=== PATIENT | female | born 1965 | race Caucasian/White ===

== ENCOUNTER 2017-08-30 21:03 | Emergency (ER) | payer OTHER ==
[2017-08-30 21:07] VITALS: BMI 18.2
--- NOTE | 2017-08-30 21:17 | PDOC ---
History of Present Illness - General History Source: Patient Exam Limitations: No Limitations - History of Present Illness Initial Comments: 08/30/17 21:44 The patient is a 52 year old female, with no significant past medical history, who presents to the emergency department with, progressively worsening lower abdominal pain beginning approx. 10 hours ago. The patient reports this morning she began to experience a sudden onset of sharp lower abdominal pain rated 3/ 10. The patient reports she took Gas X for the lower abdominal pain with little relief. The patient reports she rested during the day. However, the lower abdominal pain has been progressively getting worse so she decided to come to the ED for evaluation. The patient reports she has a fibrous diet with a lot of almonds. She denies recent fevers, chills, headache or dizziness. She denies recent nausea, vomit, diarrhea or constipation. She denies recent dysuria, frequency, urgency or hematuria. She denies recent chest pain or shortness of breath. PAST MEDICAL HISTORY: no significant history PAST SURGICAL HISTORY: no significant history FAMILY HISTORY: no pertinent history SOCIAL HISTORY: Pt lives with family and is employed. MEDICATIONS: reviewed ALLERGIES: As per nursing notes Review of Systems General: No fevers or chills, no weakness, no weight loss HEENT: No change in vision. No sore throat,. No ear pain CardioVascular: No chest pain or shortness of breath Respiratory:No cough, or wheezing. Gastrointestinal: +Lower abdominal pain. No nausea, vomiting, diarrhea or constipation, No rectal bleeding Genitourinary: No dysuria, hematuria, or frequency Musculoskeletal: No joint or muscle pain or swelling Neurologic: No headache, vertigo, dizziness or loss of consciousness Psychiatric: nor depression Skin: No rashes or easy bruising Endocrine: no increased thirst or abnormal weight change Allergic: no skin or latex allergy All other systems reviewed and normal Physical exam General: Well-nourished well-developed individual, no acute distress HEENT: Throat: Normal, tonsils normal, no erythema or exudate Neck: Supple, no meningeal signs, no lymphadenopathy Eyes::Pupils equal reactive and round, extraocular motion intact Chest: Nontender to palpation Cardiac: S1-S2 normal, regular rate and rhythm, no murmurs rubs or gallops Respiratory: Lungs clear to auscultation bilateral Abdomen: +Moderately tender left lower quadrant. Soft, nondistended, normal bowel sounds. Extremities: Warm, dry, no cyanosis, clubbing, or edema Skin: No rashes Neuro: Alert and oriented x3, nonfocal exam, grossly intact, normal gait Psych: Normal mood and affect <Masood Mcrae - Last Filed: 08/30/17 21:46> - General History Source: Patient Exam Limitations: No Limitations - History of Present Illness Initial Comments: A portion of this note was documented by scribe services under my direction. I have reviewed the details of the note, within reason, and agree with the documentation. The case summary and management plan written by me. Medical decision making This is a 52-year-old female who comes in complaining of the moderately severe lower abdominal pain.\ On my exam patient was tender primarily of over the left lower quadrant exam was concerning for diverticulitis. We'll obtain blood work including CBC, comp, urinalysis Will order, CAT scan abdomen and pelvis with IV and by mouth contrast We will give IV fluids and some antiemetics and pain medication Will reassess and follow up on the evaluation I ordered 23:00 Patient much more comfortable with pain medication and fluids Patient scheduled for CT proximal 11:30 PM 08/31/17 00:29 CAT scan shows moderate to large amount of stool otherwise normal and no acute pathology Assessment and plan: This is a 52-year-old female with primarily lower abdominal pain on my exam was most tender over the left lower quadrant. Exam was concerning for diverticulitis however patient's workup was negative for any acute disease process including normal CBC normal chemistries and a normal CAT scan with the exception of a moderate amount of constipation. Patient will be given a bottle of mag citrate and told to sweet pickle maker some over-the- counter laxatives and follow up with her primary care doctor <Iain Zhong I - Last Filed: 08/31/17 00:35> - General Chief Complaint: Pain, Acute Stated Complaint: LOWER ABD PAIN Time Seen by Provider: 08/30/17 21:08 Past History <Masood Mcrae - Last Filed: 08/30/17 21:46> - Past Medical History COPD: No - Suicide/Smoking/Psychosocial Hx Smoking History: Never smoked Hx Alcohol Use: No Drug/Substance Use Hx: No Substance Use Type: Alcohol <Iain Zhong I - Last Filed: 08/31/17 00:35> - Past Medical History Allergies/Adverse Reactions: Allergies Allergy/AdvReac Type Severity Reaction Status Date / Time No Known Allergies Allergy Verified 08/30/17 21:03 Home Medications: Ambulatory Orders Bupropion HCl [Wellbutrin -] 100 mg PO DAILY 08/30/17 Levothyroxine [Synthroid -] 112 mcg PO DAILY 08/30/17 *Physical Exam - Vital Signs Last Vital Signs Temp Pulse Resp BP Pulse Ox 98.1 F 65 16 127/90 100 08/30/17 21:03 08/30/17 21:03 08/30/17 21:03 08/30/17 21:03 08/30/17 21:03 <Masood Mcrae - Last Filed: 08/30/17 21:46> - Vital Signs Last Vital Signs Temp Pulse Resp BP Pulse Ox 98.1 F 65 16 127/90 100 08/30/17 21:03 08/30/17 21:03 08/30/17 21:03 08/30/17 21:03 08/30/17 21:03 <Iain Zhong I - Last Filed: 08/31/17 00:35> ED Treatment Course - LABORATORY CBC & Chemistry Diagram: 08/30/17 21:29 08/30/17 21:29 - ADDITIONAL ORDERS Additional order review: Laboratory Results 08/30/17 21:09 Urine Color Yellow Urine Appearance Clear Urine pH 7.0 Ur Specific Kyle 1.010 Urine Protein Negative Urine Glucose (UA) Negative Urine Ketones Negative Urine Blood 2+ H Urine Nitrite Negative Urine Bilirubin Negative Urine Urobilinogen 0.2 Ur Leukocyte Esterase 1+ H Urine RBC 5-10 Urine WBC 2-5 Ur Epithelial Cells Few Urine Bacteria Few - Medications Given in the ED: ED Medications Discontinued Medications Generic Name Dose Route Start Last Admin Trade Name Freq PRN Reason Stop Dose Admin Morphine Sulfate 4 mg 08/30/17 21:27 08/30/17 21:38 Morphine Injection - IVPUSH 08/30/17 21:28 4 mg ONCE ONE Administration Ondansetron HCl 4 mg 08/30/17 21:27 08/30/17 21:38 Zofran Injection IVPUSH 08/30/17 21:28 4 mg ONCE ONE Administration <Masood Mcrae - Last Filed: 08/30/17 21:46> - LABORATORY CBC & Chemistry Diagram: 08/30/17 21:29 08/30/17 21:29 <Iain Zhong I - Last Filed: 08/31/17 00:35> *DC/Admit/Observation/Transfer - Attestations Scribe Attestion: 08/30/17 21:45 Documentation prepared by Masood Mcrae, acting as medical staff physician for Iain Zhong MD. <aMsood Mcrae - Last Filed: 08/30/17 21:46> - Discharge Dispostion Admit: No <Iain Zhong I - Last Filed: 08/31/17 00:35> Diagnosis at time of Disposition: Constipation Qualifiers: Constipation type: unspecified constipation type Qualified Code(s): K59.00 - Constipation, unspecified - Discharge Dispostion Disposition: HOME Condition at time of disposition: Stable - Patient Instructions Additional Instructions: You are being given a bottle of mag citrate this is a laxative. You most likely should wait till morning to drink it as otherwise it will keep you up all night. In addition to that get some MiraLAX which is an [id number] laxative and take as directed for the next several days. Return to the emergency department immediately with ANY new, persistent or worsening symptoms. Continue any medications as previously prescribed by your physician. You should follow up with your primary doctor as soon as possible regarding today's emergency department visit. . Please make sure your doctor reviews the results of your emergency evaluation. Thank you for coming to the Emergency Department today for your care. It was a pleasure to see you today. Please note that your evaluation is INCOMPLETE until you follow-up with your doctor.
[2017-08-30 21:20] LABS: URINE APPEARANCE Clear; URINE BILIRUBIN Negative (NEGATIVE); URINE GLUCOSE (UA) Negative (NEGATIVE); URINE KETONE Negative (NEGATIVE); URINE NITRITE Negative (NEGATIVE); URINE PROTEIN Negative (NEGATIVE); URINE UROBILINOGEN 0.2 (0.2-1.0)
[2017-08-30 21:22] LABS: URINE BLOOD 2+ (NEGATIVE); URINE COLOR YELLOW; URINE LEUK ESTERASE 1+ (NEGATIVE)
[2017-08-30] MEDS ORDERED: ONDANSETRON 4 MG/2 ML VIAL IVPUSH ONE (21:27)
[2017-08-30] MEDS ORDERED: SODIUM CHLORIDE 1,000 ML IV ONE (21:27)
[2017-08-30] MEDS ORDERED: morphine SULFATE 4 MG/ML VIAL ONE (21:31)
[2017-08-30] MEDS ORDERED: ONDANSETRON 4 MG/2 ML VIAL ONE (21:31)
[2017-08-30 21:35] LABS: EPI CELLS FEW /HPF; URINE BACTERIA FEW /hpf (NEGATIVE)
[2017-08-30] MEDS: morphine CARPU-JECT 4 MG/1 ML DISP.SYRIN IVPUSH ONE ×2 (21:38→22:56)
[2017-08-30 21:47] LABS: BASO % 0.4 % (0-2.0); EOS % 3.3 % (0-4.5); HEMATOCRIT 34.3 % (32.4-45.2); HEMOGLOBIN 11.6 GM/dl (10.7-15.3); LYMPH % 25.4 % (8-40); MCH 29.1 pg (25.7-33.7); MCHC 33.8 g/dl (32.0-36.0); MEAN CELL VOLUME 86.3 fl (80-96); MEAN PLT VOLUME 7.4 fl (7.5-11.1); MONO % 8.4 % (3.8-10.2); NEUT % 62.5 % (42.8-82.8); PLATELET COUNT 159 K/MM3 (134-434); RBC 3.97 M/mm3 (3.60-5.2); RDW 12.2 % (11.6-15.6); WHITE BLOOD COUNT 4.8 K/mm3 (4.0-10.8)
[2017-08-30 22:00] LABS: ALBUMIN 4.1 g/dl (3.5-5.0); ALK PHOS 23 U/L (32-92); ANION GAP 7 (8-16); BILIRUBIN,TOTAL 0.3 mg/dl (0.2-1.0); BLOOD UREA NITROGEN 10 mg/dl (7-18); CALCIUM 8.7 mg/dl (8.4-10.2); CHLORIDE 102 mmol/L (98-107); CO2 27 mmol/L (22-28); CREATININE 0.9 mg/dl (0.6-1.3); GLUCOSE,RANDOM 91 mg/dl (74-106); POTASSIUM 3.7 mmol/L (3.5-5.1); SGOT/AST 19 U/L (10-42); SGPT/ALT 18 U/L (10-40); SODIUM 136 mmol/L (136-145); TOT PROT 6.3 g/dl (6.4-8.3)
[2017-08-30 22:51] LABS: LIPASE 223 U/L (73-393)
[2017-08-30] MEDS ORDERED: morphine CARPU-JECT 2 MG/1 ML DISP.SYRIN IVPUSH ONE (22:57)
[2017-08-31] MEDS ORDERED: MAGNESIUM CITRATE 300 ML BOTTLE PO ONE (00:32)
[2017-08-31] MEDS ORDERED: SIMETHICONE 80 MG TAB.CHEW (FP) PO STA (00:33)
[2017-08-31] MEDS ORDERED: MAGNESIUM CITRATE 300 ML BOTTLE ONE (00:35)
[2017-08-31] MEDS ORDERED: SIMETHICONE 80 MG TAB.CHEW (FP) ONE (00:35)
[2017-08-31 00:40] VITALS: BP 94/52; PULSE 60; TEMP 98.2
== END 2017-08-31 00:50 | disposition home or self-care (01) ==
LOC: FER 21:03
PROC: 3E033NZ Introduction of Analgesics, Hypnotics, Sedatives into Peripheral Vein, Percutaneous Approach (ICD-10-PCS; principal; 2017-08-30)
PROC: 3E0337Z Introduction of Electrolytic and Water Balance Substance into Peripheral Vein, Percutaneous Approach (ICD-10-PCS; 2017-08-30)
PROC: 3E033GC Introduction of Other Therapeutic Substance into Peripheral Vein, Percutaneous Approach (ICD-10-PCS; 2017-08-30)
DX: K59.00 Constipation, unspecified (principal)
CPT/HCPCS: 36415; 74177-TC; 80053; 81003; 81015; 83690; 85025; 99282-25

== ENCOUNTER 2019-02-28 02:03 | Emergency (ER) | payer OTHER ==
[2019-02-28 02:10] VITALS: BP 116/80; PULSE 87; TEMP 98; BMI 19.8
[2019-02-28] MEDS ORDERED: CYCLOBENZAPRINE HCL 10 MG TABLET (FP) ONE (02:15)
[2019-02-28] MEDS ORDERED: KETOROLAC TROMETHAMINE 60 MG/2 ML VIAL ONE (02:15)
[2019-02-28] MEDS ORDERED: CYCLOBENZAPRINE HCL 10 MG TABLET (FP) PO ONE (02:15)
[2019-02-28] MEDS ORDERED: KETOROLAC TROMETHAMINE 60 MG/2 ML VIAL IM ONE (02:15)
--- NOTE | 2019-02-28 02:17 | PDOC ---
History of Present Illness - General Chief Complaint: Pain, Acute Stated Complaint: BACK PAIN X 2 WEEKS Time Seen by Provider: 02/28/19 02:11 History Source: Patient Exam Limitations: No Limitations - History of Present Illness Initial Comments: 02/28/19 02:20 This is a 53-year-old female who comes in complaining of low back pain radiating down her leg. Patient denies any recent trauma. Patient went to her primary care doctor approximately one week ago and was put on a Medrol Dosepak. Patient says she has been taking the pack as prescribed and has only one more day left. Patient said her back pain is not improving. Patient otherwise denies any numbness or weakness, any loss of continence or any other neurological complaints. Allergies: as per nursing notes Past Medical History: none Social history: Lives with family. No smoking. No alcohol. No illicit drugs. Surgical history: None General: No fevers or chills, no weakness, no weight loss HEENT: No change in vision. No sore throat,. No ear pain CardioVascular: no chest discomfort. No shortness of breath Respiratory:No cough, or wheezing. Gastrointestinal: no nausea, vomiting, diarrhea or constipation, No rectal bleeding Genitourinary: No dysuria, hematuria, or frequency Musculoskeletal: Low back pain as per history of present illness Neurologic: No headache, vertigo, dizziness or loss of consciousness Psychiatric: nor depression Skin: No rashes or easy bruising Endocrine: no increased thirst or abnormal weight change Allergic: no skin or latex allergy All other systems reviewed and normal GENERAL: The patient is awake, alert, and fully oriented, in no acute distress. HEAD: Normal with no signs of trauma. EYES: Pupils equal, round and reactive to light, extraocular movements intact, sclera anicteric, conjunctiva clear. EXTREMITIES:atraumatic, Normal range of motion, no edema. BACK: There is tenderness on palpation over the L5-S1 area as well as some bilateral spasm. There is tenderness over the sciatic notch bilaterally. Neurovascular distal is intact. NEUROLOGICAL: Normal speech, normal gait. PSYCH: Normal mood, normal affect. SKIN: Warm, Dry, normal turgor, no rashes or lesions noted. Assessment and plan: This is a 53-year-old female with sciatica who comes in for evaluation. Patient given a shot of Toradol some very Flexeril prescriptions for naproxen and Flexeril sent to her pharmacy and patient discharged and will follow-up with her primary care doctor Past History - Past Medical History Allergies/Adverse Reactions: Allergies Allergy/AdvReac Type Severity Reaction Status Date / Time No Known Allergies Allergy Verified 02/28/19 02:04 Home Medications: Ambulatory Orders Levothyroxine [Synthroid -] 125 mcg PO DAILY 08/30/17 Cyclobenzaprine HCl [Flexeril -] 10 mg PO HS #7 tablet 02/28/19 Methylprednisolone [Medrol Dose Ilya] 4 mg PO ASDIR 02/28/19 Naproxen 500 mg PO BID #28 tablet 02/28/19 Ranitidine HCl [Zantac] 150 mg PO HS 02/28/19 COPD: No Thyroid Disease: Yes - Suicide/Smoking/Psychosocial Hx Smoking History: Former smoker Have you smoked in the past 12 months: No Information on smoking cessation initiated: No Hx Alcohol Use: Yes (WEEK END) Drug/Substance Use Hx: No Substance Use Type: Alcohol *Physical Exam - Vital Signs Last Vital Signs Temp Pulse Resp BP Pulse Ox 98 F 87 16 116/80 100 02/28/19 02:06 02/28/19 02:06 02/28/19 02:06 02/28/19 02:06 02/28/19 02:06 *DC/Admit/Observation/Transfer Diagnosis at time of Disposition: Sciatica Qualifiers: Laterality: unspecified laterality Qualified Code(s): M54.30 - Sciatica, unspecified side - Discharge Dispostion Disposition: HOME Condition at time of disposition: Stable Decision to Admit order: No - Prescriptions Prescriptions: Cyclobenzaprine HCl [Flexeril -] 10 mg PO HS #7 tablet Naproxen 500 mg PO BID #28 tablet - Referrals Referrals: Trista Vieira [Primary Care Provider] - - Patient Instructions Additional Instructions: Take naproxen 1 tablet twice a day with food don't take on an empty stomach this is an anti-inflammatory. Take a muscle relaxant before going to bed once a day. Return to the emergency department immediately with ANY new, persistent or worsening symptoms. Continue any medications as previously prescribed by your physician. You should follow up with your primary doctor as soon as possible regarding today's emergency department visit. . Please make sure your doctor reviews the results of your emergency evaluation. Thank you for coming to the Emergency Department today for your care. It was a pleasure to see you today. Please note that your evaluation is INCOMPLETE until you follow-up with your doctor. - Post Discharge Activity
== END 2019-02-28 02:22 | disposition home or self-care (01) ==
LOC: FER 02:03
PROC: 3E0233Z Introduction of Anti-inflammatory into Muscle, Percutaneous Approach (ICD-10-PCS; principal; 2019-02-28)
DX: M54.30 Sciatica, unspecified side (principal); Z87.891 Personal history of nicotine dependence; E03.9 Hypothyroidism, unspecified
CPT/HCPCS: 99281-25

== ENCOUNTER 2021-09-17 02:13 | Emergency (ER) | payer OTHER ==
[2021-09-17 02:35] VITALS: BP 97/64; PULSE 53; TEMP 97.9; BMI 18.5
[2021-09-17] MEDS ORDERED: CIPROFLOXACIN 250 MG TABLET (RESTRICTED TO ID) PO ONE ×2 (02:35→02:36)
[2021-09-17] MEDS ORDERED: PHENAZOPYRIDINE HCL 100 MG TABLET (FP) ONE (02:36)
[2021-09-17] MEDS ORDERED: PHENAZOPYRIDINE HCL 100 MG TABLET (FP) PO ONE (02:36)
[2021-09-17 03:27] LABS: PH,URINE >= 9.0 (5.0-8.0); URINE APPEARANCE CLEAR; URINE BILIRUBIN NEGATIVE (NEGATIVE); URINE COLOR YELLOW; URINE GLUCOSE (UA) NEGATIVE (NEGATIVE); URINE KETONE NEGATIVE (NEGATIVE); URINE LEUK ESTERASE NEGATIVE (NEGATIVE); URINE NITRITE NEGATIVE (NEGATIVE); URINE PROTEIN NEGATIVE (NEGATIVE); URINE UROBILINOGEN 0.2 mg/dL (0.2-1.0)
== END 2021-09-17 02:54 | disposition home or self-care (01) ==
LOC: FER 02:13
DX: R35.0 Frequency of micturition (principal)
CPT/HCPCS: 81003; 87086; 99283-25